=== PATIENT | male | born 1990 | race American Indian/Alaskan Native ===

== ENCOUNTER 2016-11-16 12:07 | Emergency (ER) | payer MEDICAID ==
[2016-11-16 12:10] VITALS: BMI 31.1
[2016-11-16 12:13] VITALS: BP 143/90; PULSE 78; RESP 18; TEMP 97.7; O2SAT 100
--- NOTE | 2016-11-16 12:34 | C.PDOC ---
History Of Present Illness 25 y/o male presents to ED requesting detox from PCP abuse. Patient also admits to abusing EtOH. Girlfriend at bedside notes that he has not been taking his psych medications. Otherwise denies any other complaints, suicidal ideation, or homicidal ideation. Time Seen by Provider: 11/16/16 12:20 Chief Complaint (Nursing): Substance Abuse History Per: Patient History/Exam Limitations: no limitations Onset/Duration Of Symptoms: Days Current Symptoms Are (Timing): Still Present Suicide/Self Injury Attempted (Context): None Modifying Factor(s): Alcohol, Other (PCP) Associated Symptoms: denies: Suicidal Thoughts, Suicidal Plan Recent travel outside of the [place]: No Past Medical History Reviewed: Historical Data, Nursing Documentation, Vital Signs Vital Signs: Last Vital Signs Temp 97.7 F 11/16/16 12:11 Pulse 78 11/16/16 12:11 Resp 18 11/16/16 12:11 BP 143/90 11/16/16 12:11 Pulse Ox 100 11/16/16 12:34 - Medical History PMH: Bipolar Disorder, Schizophrenia Family History: States: Unknown Family Hx - Social History Hx Alcohol Use: Yes Hx Substance Use: Yes - Immunization History Hx Tetanus Toxoid Vaccination: No Hx Influenza Vaccination: No Hx Pneumococcal Vaccination: No Review Of Systems Except As Marked, All Systems Reviewed And Found Negative. Constitutional: Negative for: Fever, Chills Cardiovascular: Negative for: Chest Pain Respiratory: Negative for: Shortness of Breath Gastrointestinal: Negative for: Nausea, Vomiting Skin: Negative for: Rash Psych: Negative for: Suicidal ideation, Withdrawal Physical Exam - Physical Exam Appears: Non-toxic, No Acute Distress Skin: Normal Color, Warm, Dry Head: Atraumatic, Normacephalic Chest: Symmetrical Cardiovascular: Rhythm Regular Respiratory: Normal Breath Sounds, No Rales, No Rhonchi, No Wheezing Gastrointestinal/Abdominal: Soft, No Tenderness, No Guarding, No Rebound Back: Normal Inspection Extremity: Normal ROM, Capillary Refill (< 2 sec.) Neurological/Psych: Oriented x3 ED Course And Treatment O2 Sat by Pulse Oximetry: 100 (RA) Pulse Ox Interpretation: Normal Progress Note: Case discussed with Crisis department who report that they do not have any available detox beds today. Patient provided with referrals to outpatient detox Reassessment Condition: Unchanged Disposition Counseled Patient/Family Regarding: Diagnosis, Need For Followup - Disposition Referrals: Alcoholics Anonymous [Outside] [facility] [Outside] [facility] [Outside] Disposition: HOME/ ROUTINE Disposition Time: 13:00 Condition: STABLE Instructions: Polysubstance Abuse (ED) - POA Present On Arrival: None - Clinical Impression Clinical Impression: Drug abuse, Bipolar 1 disorder, Polysubstance (excluding opioids) dependence - PA / MORTGAGE LOAN SPECIALIST / Resident Statement MD/DO has reviewed & agrees with the documentation as recorded. - Scribe Statement The provider has reviewed the documentation as recorded by the Scriblinda Bullard All medical record entries made by the Silas were at my direction and personally dictated by me. I have reviewed the chart and agree that the record accurately reflects my personal performance of the history, physical exam, medical decision making, and the department course for this patient. I have also personally directed, reviewed, and agree with the discharge instructions and disposition.
== END 2016-11-16 13:05 | disposition home or self-care (01) ==
LOC: C.ER 12:07
DX: F31.9 Bipolar disorder, unspecified (principal); F19.20 Other psychoactive substance dependence, uncomplicated

== ENCOUNTER 2016-11-17 23:52 | Inpatient (IN) | payer MEDICAID ==
[2016-11-17 23:53] VITALS: BMI 31.1
--- NOTE | 2016-11-18 00:18 | C.PDOC ---
History Of Present Illness Patient with Hx of bipolar disorder, schizophrenia and hearing voices was brought into the ER by mother for a psychiatric evaluation. Denies any physical complaints. Time Seen by Provider: 11/18/16 00:17 Chief Complaint (Nursing): Psychiatric Evaluation History Per: Patient History/Exam Limitations: no limitations Onset/Duration Of Symptoms: Days Current Symptoms Are (Timing): Still Present Suicide/Self Injury Attempted (Context): None Modifying Factor(s): None Severity: None Pain Scale Rating Of: 0 Associated Symptoms: Other (none) Involuntary Hold By: None Recent travel outside of the [place]: No Past Medical History Reviewed: Historical Data, Nursing Documentation, Vital Signs Vital Signs: Last Vital Signs Temp 98.3 F 11/18/16 00:07 Pulse 89 11/18/16 00:07 Resp 18 11/18/16 00:07 BP 131/80 11/18/16 00:07 Pulse Ox 96 11/18/16 01:29 - Medical History PMH: Bipolar Disorder, Schizophrenia Surgical History: No Surg Hx Family History: States: No Known Family Hx - Social History Hx Alcohol Use: Yes Hx Substance Use: Yes - Immunization History Hx Tetanus Toxoid Vaccination: No Hx Influenza Vaccination: No Hx Pneumococcal Vaccination: No Review Of Systems Constitutional: Negative for: Fever, Chills Gastrointestinal: Negative for: Nausea, Vomiting, Diarrhea Psych: Positive for: Other (Bipolar disorder, schizophrenia, hearing voices) Physical Exam - Physical Exam Appears: Non-toxic Skin: Warm, Dry Oral Mucosa: Moist Chest: Symmetrical, No Tenderness Cardiovascular: Rhythm Regular, No Murmur Respiratory: No Rales, No Rhonchi, No Wheezing Gastrointestinal/Abdominal: Soft, No Tenderness Neurological/Psych: Oriented x3 ED Course And Treatment - Laboratory Results Result Diagrams: 11/18/16 01:04 11/18/16 01:04 O2 Sat by Pulse Oximetry: 96 (Room air) Pulse Ox Interpretation: Normal Progress Note: Blood work ordered. Zac administered. Crisis called for consult. Disposition Discussed With : Idania Ocampo Comment: accepted the pt on his service and took over the care at 2:23 AM Doctor Will See Patient In The: Hospital Counseled Patient/Family Regarding: Studies Performed, Diagnosis - Disposition Referrals: Non [facility] Provider, [Primary Care Provider] - Disposition: HOSPITALIZED Disposition Time: 00:18 Condition: FAIR - POA Present On Arrival: None - Clinical Impression Clinical Impression: Schizoaffective disorder, PCP (phencyclidine) abuse - Scribe Statement The provider has reviewed the documentation as recorded by the Scribe Pavan Moore All medical record entries made by the Scribe were at my direction and personally dictated by me. I have reviewed the chart and agree that the record accurately reflects my personal performance of the history, physical exam, medical decision making, and the department course for this patient. I have also personally directed, reviewed, and agree with the discharge instructions and disposition. Decision To Admit - Pt Status Changed To: Hospital Disposition Of: Inpatient - Admit Certification Admit to Inpatient:: After my assessment, the patient will require hospitalization for at least two midnights. This is because of the severity of symptoms shown, intensity of services needed, and/or the medical risk in this patient being treated as an outpatient. - InPatient: Physician Admission Certification: I certify that this patient requires 2 or more midnights of care for the following reason:: After my assessment, the patient will require hospitalization for at least two midnights. This is because of the severity of symptoms shown, intensity of services needed, and/or the medical risk in this patient being treated as an outpatient. - . Bed Request Type: Psychiatry Admitting Physician: Idania Ocampo Patient Diagnosis: Schizoaffective disorder, PCP (phencyclidine) abuse
[2016-11-18 00:48] LABS: RBC URINE < 1 /hpf (0-3); URINE BILIRUBIN NEGATIVE (NEGATIVE); URINE BLOOD NEGATIVE (NEGATIVE); URINE COLOR Colorless (YELLOW); URINE GLUCOSE (UA) NORMAL (Normal); URINE KETONE NEGATIVE (NEGATIVE); URINE LEUKOCYTE ESTERASE NEG Leu/uL (Negative); URINE PROTEIN NEGATIVE (NEGATIVE); URINE UROBILINOGEN NORMAL mg/dL (0.2-1.0)
[2016-11-18 01:15] LABS: BASO # 0.1 K/uL (0.0-0.2); BASO % 0.8 % (0.0-2.0); EOS # 0.1 K/uL (0.0-0.7); EOS % 0.9 % (0.0-4.0); HEMATOCRIT 42.8 % (35.0-51.0); LYMPH # 2.2 K/uL (1.0-4.3); LYMPH % 19.9 % (20.0-40.0); MEAN CELL VOLUME 86.9 fL (80.0-94.0); MEAN CORPUSCULAR HEMOGLOBIN 28.6 pg (27.0-31.0); MEAN CORPUSCULAR HGB CONC 32.9 g/dL (33.0-37.0); MEAN PLATELET VOLUME 9.9 fL (7.2-11.7); MONO # 0.9 K/uL (0.0-0.8); RED CELL DISTRIBUTION WIDTH 12.8 % (11.5-14.5)
[2016-11-18 01:37] LABS: CHLORIDE 100 mmol/L (98-107); POTASSIUM 3.9 mmol/L (3.6-5.2); SODIUM 138 mmol/L (132-148)
[2016-11-18 01:39] LABS: BILIRUBIN,TOTAL 0.5 mg/dL (0.2-1.3); CARBON DIOXIDE 26 mmol/L (22-30); GFR AFRICAN-AMERICAN > 60
[2016-11-18 01:40] LABS: ALB/GLOB RATIO 1.8 (1.0-2.1); ALKALINE PHOSPHATASE 76 U/L (38-126); ALT/SGPT 94 U/L (21-72); AST/SGOT 136 U/L (17-59); BLOOD UREA NITROGEN 12 mg/dL (9-20); GLUCOSE,RANDOM 95 mg/dL (75-110); TOTAL PROTEIN 7.1 g/dL (6.3-8.3)
[2016-11-18 01:41] LABS: ALCOHOL SERUM < 10 mg/dl (0-10)
--- NOTE | 2016-11-18 15:18 | PCM.PSYCH ---
Initial Psychiatric Evaluation - Initial Psychiatric Evaluation Type of Admission: Voluntary Legal Status: Capacity Chief Complaint (in patient's own words): "I haven't slept in days." History of Present Illness and Precipitating Events: Patient is a 25 year old male who is homeless and does not work. He asks people for money to support his habits. Patient's highest level of education is 11th grade; he was in special education for ADHD. Patient states his mom called 911 because he told her he has not slept in 2 weeks due to PCP use. Patient denies hallucinations, paranoia, depression, suicidal ideation, homicidal ideation. As per the nursing staff, patient's family said patient had some obscene and lewd and inappropriate contact with family members and was exposing himself to them. Patient states he does not remember any of this happening. Patient states he started smoking PCP at age 14. He started smoking again 1 month ago after he was released from alf (did 8 months for burglary). Patient also smokes marijuana (since age 11), drinks 1 beer a day, and smokes 10 cigarettes per day. Past psych: hospitalized at [facility]; [facility] in-patient in 2016 Family psych: none Medications: none Patient plans to stay in [place] upon discharge, and may possibly go to [facility] [employer]. Time: 34 minutes Current Medications: Active Medications Generic Name Dose Route Start Last Admin Trade Name Freq PRN Reason Stop Dose Admin Benztropine Mesylate 1 mg 11/18/16 10:11/18/16 10:29 Cogentin PO 1 mg BID MESERET Administration Clonazepam 1 mg 11/18/16 10:11/18/16 10:29 Klonopin PO 1 mg BID MESERET Administration Haloperidol 5 mg 11/18/16 09:57 Haldol PO Q1H PRN agitation max 4x/24h Hydroxyzine HCl 50 mg 11/18/16 09:54 Atarax PO Q6H PRN Anxiety Ibuprofen 600 mg 11/18/16 02:50 Motrin Tab PO Q6 PRN Pain, moderate (4-7) Lorazepam 1 mg 11/18/16 02:50 Ativan PO Q6 PRN Agitation Risperidone 1 mg 11/18/16 10:00 11/18/16 10:29 Risperdal Tab PO 1 mg BID MESERET Administration Trazodone HCl 50 mg 11/18/16 02:53 Desyrel PO HS PRN Sleep Past Psychiatric History - Past Psychiatric History Previous Treatment History: Inpatient Pertinent Medical Hx (Current Medical&Sleep Prob, Allergies): Allergies Allergy/AdvReac Type Severity Reaction Status Date / Time No Known Allergies Allergy Verified 11/18/16 00:06 No Known Home Med 11/16/16 Review of Systems - Review of Systems All systems: reviewed and no additional remarkable complaints except - Psychiatric Psychiatric: Behavioral Changes, Irritability, Memory Loss. absent: Auditory Hallucinations, Depression, Hallucinations, Homicidal Ideation, Paranoia, Suicidal Ideation, Visual Hallucinations Mental Status Examination - Personal Presentation Personal Presentation: Looks older than stated age - Affect Affect: Broad - Motor Activity Motor Activity: Psychomotor Agitation - Reliability in Providing Information Reliability in Providing Information: Poor, due to cognitve impairment - Speech Speech: Organized - Mood Mood: Neutral - Formal Thought Process Formal Thought Process: No Impairment - Obsessions/Compulsions Obsessions: No Compulsions: No - Cognitive Functions Orientation: Person, Place, Situation Sensorium: Alert Attention/Concentration: Attentive Abstract Thinking: [place] Judgement: Imparied, as evidence by: Poor judgement Memory: Recent impaired, as evidence by: Inability to recall events of the day, Remote impaired as evidenced by: Inability to recall sig life events - Limitations Limitations: Living alone DSM 5 DX - DSM 5 DSM 5 Diagnosis: Substance-induced mood disorder PCP use d/o - severe cannabis use d/o - severe r/o substance-induced psychosis r/o shizoaffective disorder r/o borderline intellect - Recommended/Plan of Treatment Treatment Recommendations and Plan of Treatment: Substance-induced mood disorder - Klonopin 1 mg PO BID MESERET x2-3 days until the effect of PCP disappears - Haldol 5 mg PO Q1H PRN - agitation - Atarax 50 mg PO Q6H PRN - Ativan 1 mg PO Q6 PRN - agitation - Risperdal 1 mg PO BID MESERET - Attend groups and activities - Support and psychoeducation given - [place] for abstinence 33 min Projected ELOS: 4-5 days Prognosis: good w treatment Discharge Plan and Discharge Criteria: refer to rehab - Smoking Cessation Smoking Cessation Initiated: Yes
--- NOTE | 2016-11-19 10:00 | PCM.PYCHPN ---
Psychiatric Progress Note - Psychiatric Progress Note Patient seen today, length of contact: 15 min Patient Chief Complaint: I am thais.' Problems Identified/Issues Discussed: Patient seen and evaluated, chart reviewed and discussed with the nurse. Patient remained very disorganized and internally preoccupied. He continued to pace back and forth in the hallways and remained paranoid and delusional. He reports of anxiety and irritability. However he remained calm and cooperative. He is taking medication and denies any side effects. Supportive therapy and psychoeducation were given. Medication Change: Yes (increase Klonopin, Start Haldol) Medical Record Reviewed: Yes Mental Status Examination - Cognitive Function Orientation: Person, Place, Situation Memory: Intact Attention: Poor Concentration: Poor Association: Loose Fund of Knowledge: Poor - Mood Mood: Anxious - Affect Affect: Broad - Speech Speech: Pressured - Formal Thought Process Formal Thought Process: Delusions, Paranoia, Loosening of associations - Suicidal Ideation Suicidal Ideation: No - Homicidal Ideation Homicidal Ideation: No Goal/Treatment Plan - Goal/Treatment Plan Need for Continued Stay: Discharge may exacerbated symptoms, Severe functional impairment Progress Toward Problem(s) and Goals/Treatment Plan: Substance-induced mood disorder PCP use d/o - severe cannabis use d/o - severe r/o substance-induced psychosis r/o shizoaffective disorder r/o borderline intellect Substance-induced mood disorder - Klonopin 1 mg PO BID MESERET x2-3 days until the effect of PCP disappears - Haldol 5 mg PO BID - Atarax 50 mg PO Q6H PRN - Ativan 1 mg PO Q6 PRN - agitation - Risperdal 1 mg PO BID MESERET - Depakote 250 mg PO BID - Klonopin 1 mg PO TID - Attend groups and activities - Support and psychoeducation given - ID for abstinence - Smoking Cessation Smoking Cessation Initiated: No
--- NOTE | 2016-11-20 12:24 | PCM.PYCHPN ---
Psychiatric Progress Note - Psychiatric Progress Note Patient seen today, length of contact: 15 min Patient Chief Complaint: 'i want to go home." Problems Identified/Issues Discussed: Patient seen and evaluated, chart reviewed and discussed with the nurse. Staff reports that patient remained remained paranoid and delusional. At times he appears physically threatening. He still appears disorganized and internally preoccupied. Today again, he is reporting anxiety and irritability and asking for stronger medications. He continued to pace back and forth in the hallways. He is taking medication and denies any side effects. Supportive therapy and psychoeducation were given. Medication Change: Yes (increase haldol, increase depakote) Medical Record Reviewed: Yes Mental Status Examination - Cognitive Function Orientation: Person, Place, Situation Memory: Intact Attention: Poor Concentration: Poor Association: Loose Fund of Knowledge: Poor - Mood Mood: Anxious - Affect Affect: Broad - Speech Speech: Pressured - Formal Thought Process Formal Thought Process: Delusions, Paranoia, Loosening of associations - Suicidal Ideation Suicidal Ideation: No - Homicidal Ideation Homicidal Ideation: No Goal/Treatment Plan - Goal/Treatment Plan Need for Continued Stay: Discharge may exacerbated symptoms, Severe functional impairment Progress Toward Problem(s) and Goals/Treatment Plan: Substance-induced mood disorder PCP use d/o - severe cannabis use d/o - severe r/o substance-induced psychosis r/o shizoaffective disorder r/o borderline intellect Substance-induced mood disorder - Klonopin 1 mg PO BID MESERET x2-3 days until the effect of PCP disappears - Haldol 10 mg PO BID - Atarax 50 mg PO Q6H PRN - Ativan 1 mg PO Q6 PRN - agitation - d/c Risperdal 1 mg PO BID MESERET - Depakote 500 mg PO BID - Klonopin 1 mg PO TID - Attend groups and activities - Support and psychoeducation given - [place] for abstinence
[2016-11-20] MEDS: Divalproex 500 mg DR Tab PO SCH ×2 (12:48→17:26)
[2016-11-20 15:05] VITALS: O2SAT 98
[2016-11-21] MEDS: Divalproex 500 mg DR Tab PO SCH ×2 (09:58→17:18)
--- NOTE | 2016-11-21 12:00 | PCM.PYCHPN ---
Psychiatric Progress Note - Psychiatric Progress Note Patient seen today, length of contact: 18 min Patient Chief Complaint: "I'm doing great, I can leave" Problems Identified/Issues Discussed: The pt is seen, chart reviewed, case discussed with staff. The pt is compliant with medications and reports no side-effects. Patient is anxious to be discharged in time for his birthday which is 4 weeks away. He is so concrete and cognitively limited that he keeps asking the same questions and does not grasp basic concepts at times, Symptoms are improving but needs more time to stabilize. Still odd, concrete and irate, likely hiding more psychotic sxs After care discussed, support and psychoeducation given. Patient plans to go to [facility] with possible discharge 11/22. Patient to receive depot haldol injection as he is nnon-compliant outside w meds. Risks discussed. Medication Change: Yes (depot haldol) Medical Record Reviewed: Yes Mental Status Examination - Cognitive Function Orientation: Person, Place, Situation Memory: Impaired Attention: Poor Concentration: Poor Association: Loose Fund of Knowledge: Poor - Mood Mood: Anxious - Affect Affect: Broad - Speech Speech: Pressured - Formal Thought Process Formal Thought Process: Delusions, Paranoia, Loosening of associations - Suicidal Ideation Suicidal Ideation: No - Homicidal Ideation Homicidal Ideation: No Goal/Treatment Plan - Goal/Treatment Plan Need for Continued Stay: Remain at risks for inpatient hospitalization, Discharge may exacerbated symptoms, Severe functional impairment Progress Toward Problem(s) and Goals/Treatment Plan: Substance-induced mood disorder - Klonopin 1 mg PO TID MESERET - Depakote 500 mg PO BID MESERET - Haldol 5 mg PO Q1H PRN - agitation - Haldol 10 mg PO BID MESERET - Haldol Decanoate 50 mg IM once x2 - Atarax 50 mg PO Q6H PRN - Ativan 1 mg PO Q6 PRN - agitation - Attend groups and activities - Support and psychoeducation given - [place] for abstinence Estimated Date of D/C: 11/22/16
[2016-11-22] MEDS: Divalproex 500 mg DR Tab PO SCH ×2 (09:21→17:43)
[2016-11-22 10:26] VITALS: RESP 18; TEMP 97.7
--- NOTE | 2016-11-22 12:04 | PCM.PYCHPN ---
Psychiatric Progress Note - Psychiatric Progress Note Patient seen today, length of contact: 18 min Patient Chief Complaint: "I'm fine. When can I go home?" Problems Identified/Issues Discussed: The pt is seen, chart reviewed, case discussed with staff. The pt is compliant with medications and reports no side-effects. Patient received 2 doses of haldol depot as he is non-compliant outside w meds; risks discussed. He reports no side effects. Monitor for side effects. Symptoms are improving, however, patient is still slightly agitated about being the hospital. More time is needed to stabilize. Symptoms are improving but needs more time to stabilize. Still odd, concrete and irate. looks paranoid but is guarded and will not reveal his real thoughts. After care discussed, support and psychoeducation given. Discharge possible tomorrow 11/23 as he is asking for it and reluctantly agreed to stay (due to his last injection and potential SEs) The patient will follow up with [facility]. Support and psychoeducation given. Medication Change: Yes (depot haldol) Medical Record Reviewed: Yes Mental Status Examination - Cognitive Function Orientation: Person, Place, Situation Memory: Impaired Attention: Poor Concentration: Poor Association: Loose Fund of Knowledge: Poor - Mood Mood: Anxious - Affect Affect: Broad - Speech Speech: Pressured - Formal Thought Process Formal Thought Process: Delusions, Paranoia, Loosening of associations - Suicidal Ideation Suicidal Ideation: No - Homicidal Ideation Homicidal Ideation: No Goal/Treatment Plan - Goal/Treatment Plan Need for Continued Stay: Remain at risks for inpatient hospitalization, Discharge may exacerbated symptoms, Severe functional impairment Progress Toward Problem(s) and Goals/Treatment Plan: Substance-induced mood disorder - Klonopin 1 mg PO TID MESERET - Depakote 500 mg PO BID MESERET - Haldol 5 mg PO Q1H PRN - agitation - Haldol 10 mg PO BID MESERET - Haldol Decanoate 50 mg IM once x2 - Atarax 50 mg PO Q6H PRN - Ativan 1 mg PO Q6 PRN - agitation - Attend groups and activities - Support and psychoeducation given - [place] for abstinence Estimated Date of D/C: 11/23/16
[2016-11-23 07:41] VITALS: BP 98/66; PULSE 62
--- NOTE | 2016-11-23 09:50 | PCM.PYCHDC ---
Mental Status Examination - Mental Status Examination Orientation: Person, Place, Situation, Time Memory: Impaired Mood: Anxious Affect: Blunted Speech: Slurred (monotonous) Attention: Poor Concentration: Poor Association: WNL Fund of Knowledge: Poor Formal Thought Process: Paranoia (likely) Suicidal Ideation: No Current Homicidal Ideation?: No Discharge Summary - Discharge Note Reason for Hospitalization: Psychosis, agitation Consultations:: List each consultation separately and include: 1. Reason for request. 2. Findings. 3. Follow-up Summary of Hospital Course include:: 1. Description of specific treatment plan utilized for patients during their course of treatmen. 2. Summarize the time- course for resolution of acute symptoms and/or regressed behaviors. 3. Describe issues identified and worked on during hospitalization. 4. Describe medication utilized. 5. Describe medical problems identified and treated. 6. Reassessment of suicide risk Summary of Hospital Course: The pt was admitted and started on treatment with psychotherapy, support, psychoeducation and medications for PCP use disorder and substance-induced mood disorder. ND used. The pt attended activities, as well as milieu therapy. All the risks and benefits of medications are discussed and the patient understood and agreed. He is given 100 mg Haldol Dec After care discussed with the patient. He was somewhat interested. He was odd, concrete and looked like intellectually disabled. Patient plans to be discharged to jail and follow up with [facility]. He will apply for work through the [employer] agency. - Final Diagnosis (DSM 5) Condition upon Discharge: FAIR DSM 5: Substance-induced mood disorder PCP use d/o - severe cannabis use d/o - severe r/o substance-induced psychosis r/o shizoaffective disorder r/o borderline intellect Disposition: HOME/ ROUTINE Follow-up Treatment Plan: Continue below medications after discharge. Follow after care plan as discussed. Follow up with therapist, psychiatrist, attend groups. Follow up with [facility]. Use relapse prevention skills. Return to ER or call 911 if suicidal, homicidal or symptoms relapse. Stay away from stress, alcohol and drugs. See primary doctor once a year. Prescriptions/Medication Reconciliation: Benztropine [Cogentin] 1 mg PO BID #60 tab Divalproex [Depakote DR] 500 mg PO BID #60 tcp Haloperidol [Haldol] 5 mg PO BID #60 tab traZODone [Desyrel] 100 mg PO HS #30 tab - Smoking Cessation Smoking Cessation Medication prescribed: No - Antipsychotic Medications Pt discharged on 2 or more routine antipsychotic medications: No
[2016-11-23] MEDS: Divalproex 500 mg DR Tab PO SCH (10:25)
== END 2016-11-23 11:40 | disposition home or self-care (01) | DRG 747 ==
LOC: C.ER 23:52 → SUPCPDRO 23:52 → C.5E 11-18 02:24
PROVIDERS: ADMIT Psychiatry & Neurology Psychiatry; ATTEND Psychiatry & Neurology Psychiatry
PROC: HZ59ZZZ Individual Psychotherapy for Substance Abuse Treatment, Supportive (ICD-10-PCS; principal; 2016-11-18)
PROC: HZ2ZZZZ Detoxification Services for Substance Abuse Treatment (ICD-10-PCS; 2016-11-18)
PROC: GZHZZZZ Group Psychotherapy (ICD-10-PCS; 2016-11-18)
DX: F16.94 Hallucinogen use, unspecified with hallucinogen-induced mood disorder (principal); F25.9 Schizoaffective disorder, unspecified; F16.959 Hallucinogen use, unspecified with hallucinogen-induced psychotic disorder, unspecified; F12.90 Cannabis use, unspecified, uncomplicated